=== PATIENT | male | born 1965 | race Caucasian/White ===

== ENCOUNTER 2017-05-21 15:46 | Emergency (ER) | payer OTHER ==
[2017-05-21 16:07] VITALS: BP 135/94
--- NOTE | 2017-05-21 16:41 | Diagnostic Imaging Report ---
[facility] [address] [facility].[address] [address] Report Submission Date: May 21, 2017 4:36:18 PM CDT Patient Study Name: ELEANOR DRIVER Date: May 21, 2017 4:15:32 PM CDT Modality Type: DX Gender: M Description: UPPER EXTREMITY : 69 Institution: [facility] Physician: REGINA SPENCER Examination: Plain film left elbow History: PT STATES ELBOW PAIN AFTER REACHING UP, CLAIMS TO HEAR A "POP" ON THE MEDIAL ASPECT OF LEFT ELBOW,HAND NUMBNESS (Hx) Comparison exams: None provided Findings: 3 views of the left elbow demonstrate normal cortical margins. No fracture. No dislocation. Radial head demonstrates some degenerative spurring. No joint effusion. Impression: Radial head degenerative spurring. No acute osseous abnormality. If suspect ligament/soft tissue abnormality, consider obtaining MRI to further evaluate. Electronically signed on May 21, 2017 4:36:18 PM CDT by: Beni CLAIRE
--- NOTE | 2017-05-21 16:44 | ED Physician Documentation ---
General Adult - HISTORIAN Historian: patient - HPI Stated Complaint: L elbow pain Chief Complaint: General Adult Onset: minutes Timing: still present Severity: moderate Further Comments: yes (Pt is a 51 yo male with L elbow pain. Pain occurred spontaneously when pt was reaching overhead to get a ladder from the top of his truck. Pt was only reaching for the ladder he had not yet grasped it to pick it up. Pt says he may have hyperextended his elbow. Pt has tingling/numbness in his L hand.) - ROS CONST: no problems EYES/ENT: none CVS/RESP: none GI/: none MS/SKIN/LYMPH: other (L elbow pain) - PAST HX Past History: other (HTN, HLD, MS w stents) Surgeries/Procedures: cardiac stent, other (ortho surgery) Allergies/Adverse Reactions: Allergies Allergy/AdvReac Type Severity Reaction Status Date / Time ondansetron HCl Allergy Verified 05/21/17 16:01 [From Zofran (as hydrochloride)] Home Medications: Ambulatory Orders Medication Instructions Recorded Metoprolol Tartrate [Lopressor] 25 mg PO BID 05/30/14 Simvastatin [Simvastatin] 40 mg PO DAILY 05/30/14 Aspirin [Farheen] 81 mg PO DAILY 05/21/17 Hydrochlorothiazide [Hydrodiuril] 25 mg PO DAILY 05/21/17 - SOCIAL HX Smoking History: cigarettes - FAMILY HX Family History: No - VITAL SIGNS Vital Signs: Vital Signs Temp Pulse Resp BP Pulse Ox 98.4 F 76 16 135/94 95 05/21/17 15:50 05/21/17 15:50 05/21/17 15:50 05/21/17 15:50 05/21/17 15:50 - REVIEWED ASSESSMENTS Nursing Assessment Reviewed: Yes Vitals Reviewed: Yes Progress - Progress Progress: x-ray L elbow: Radial head degenerative spurring. No acute osseous abnormality. If suspect ligament/soft tissue abnormality, consider obtaining MRI to further evaluate. Toradol 60 mg IM Sling Trial of rest, NSAIDS. If sx persist f/u ortho next week for possible MRI. d/c instructions: Ibuprofen 200 mg. Take 3 or 4 tablets every 8 hrs with food. Sling If symptoms persist, follow up either with [facility] or with [facility] . ED Results Lab/Radiology - Orders Orders: ED Orders Category Date Time Status Sling to Affected Extremity 1T Care 05/21/17 16:41 Ordered ELBOW 3 VIEWS [RAD] Stat Exams 05/21/17 Taken Ketorolac Tromethamine [Toradol] Med 05/21/17 16:41 Once 60 mg IM NOW ONE General Adult Physical Exam - PHYSICAL EXAM GENERAL APPEARANCE: mild distress NECK: normal inspection, supple RESPIRATORY: no resp distress CVS: reg rate & rhythm BACK: normal inspection SKIN: warm/dry, normal color EXTREMITIES: other (L elbow tenderness; no swelling or inflammation) NEURO: oriented X3, motor nml, other (c/o L hand tingling/numbness) Discharge Clincal Impression: Left elbow pain Referrals: Primary Doctor,No [Primary Care Provider] - Condition: Good Disposition: 01 HOME, SELF-CARE Decision to Admit: NO Decision Time: 16:49
[2017-05-21] MEDS: KETOROLAC TROMETHAMINE 60 MG/2 ML VIAL IM ONE (16:48)
[2017-05-21] MEDS: KETOROLAC TROMETHAMINE 60 MG/2 ML VIAL ONE (16:48)
== END 2017-05-21 17:03 | disposition home or self-care (01) ==
LOC: ED 15:46
DX: M25.522 Pain in left elbow (principal); X50.1XXA Overexertion from prolonged static or awkward postures, initial encounter; Y93.89 Activity, other specified; Y92.89 Other specified places as the place of occurrence of the external cause; Y99.0 Civilian activity done for income or pay
CPT/HCPCS: 73080; 96372; 99283; J1885

== ENCOUNTER 2017-10-10 16:54 | Emergency (ER) | payer OTHER ==
--- NOTE | 2017-10-10 17:23 | ED Physician Documentation ---
General Adult - HISTORIAN Historian: patient - HPI Stated Complaint: poison avis Chief Complaint: General Adult Onset: days ago Timing: still present Severity: moderate Further Comments: yes (Pt is a 51 yo male with a rash on extremities and face. Pt states has itching around his eyes. Pt has been working outdoors in [place] and has been exposed to poison avis. Pt had recent surgery for abscess in neck.) - ROS CONST: no problems EYES/ENT: other (itching around eyes) CVS/RESP: none GI/: none MS/SKIN/LYMPH: rash - PAST HX Past History: other (HLD, HTN, MD w stents, recent neck abscess surg about 2 wks ago) Allergies/Adverse Reactions: Allergies Allergy/AdvReac Type Severity Reaction Status Date / Time ondansetron HCl Allergy Verified 10/10/17 17:38 [From Zofran (as hydrochloride)] Home Medications: Ambulatory Orders Medication Instructions Recorded Metoprolol Tartrate [Lopressor] 25 mg PO BID 05/30/14 Simvastatin 40 mg PO DAILY 05/30/14 Aspirin [Farheen] 81 mg PO DAILY 05/21/17 Hydrochlorothiazide [Hydrodiuril] 25 mg PO DAILY 05/21/17 - SOCIAL HX Smoking History: cigarettes - FAMILY HX Family History: No - VITAL SIGNS Vital Signs: Vital Signs Temp Pulse Resp BP Pulse Ox 135/94 05/21/17 17:03 - REVIEWED ASSESSMENTS Nursing Assessment Reviewed: Yes Vitals Reviewed: Yes Progress - Progress Progress: Solu-medrol 125 mg IM d/c instructions: Rx Prednisone 10 mg. Take 6 tabs by mouth at one time each day for 2 days; then take 5 tabs by mouth once daily for 2 days; then take 4 tabs by mouth once daily for 2 days; then take 3 tabs by mouth once daily for 2 days; then take 2 tabs by mouth once daily for 2 days; then take 1 tab by mouth once daily for 2 days; then stop. Start on 10/11/17. May take Benadryl and Pepcid (or Zantac) as directed for itch. Available over the counter. General Adult Physical Exam - PHYSICAL EXAM GENERAL APPEARANCE: no distress EENT: other (facial rash) NECK: supple, other (dressing in place R side of neck s/p abscess surg.) RESPIRATORY: no resp distress, chest non-tender, breath sounds normal CVS: reg rate & rhythm, heart sounds normal BACK: normal inspection SKIN: other (erythematous rash on face and extremities c/w poison avis) EXTREMITIES: non-tender, normal range of motion, no evidence of injury NEURO: oriented X3, motor nml, sensation nml Discharge Clincal Impression: Poison avis Referrals: Primary Doctor,No [Primary Care Provider] - Condition: Good Disposition: 01 HOME, SELF-CARE Decision to Admit: NO Decision Time: 17:30
[2017-10-10] MEDS ORDERED: methylPREDNISolone SOD SUCC 125 MG/2 ML VIAL IM ONE (17:24)
[2017-10-10 18:01] VITALS: BP 152/94
== END 2017-10-10 17:39 | disposition home or self-care (01) ==
LOC: ED 16:54
DX: L23.7 Allergic contact dermatitis due to plants, except food (principal)
CPT/HCPCS: 96372; J2930